=== PATIENT | female | born 1935 | race Caucasian/White ===

== ENCOUNTER 2021-08-15 19:46 | Inpatient (IN) | payer OTHER ==
[~2021-08-15] VITALS: Ht 162.6 cm; Wt 56.7 kg
[2021-08-15] MEDS ORDERED: BONIVA150 MG (20:04)
[2021-08-15] MEDS ORDERED: CORTISONE (20:04)
[2021-08-18] MEDS ORDERED: XARELTO10 MG PO (14:24)
[2021-08-18] MEDS ORDERED: INTEGRA F CAPS1 EACH PO (14:24)
[2021-08-18] MEDS ORDERED: MILK OF MA400 MG/5 M PO (14:24)
[2021-08-18] MEDS ORDERED: SENOKOT-S TABL1 EACH PO (14:25)
[2021-08-18] MEDS ORDERED: RAYOS5 MG PO (14:26)
[2021-08-18] MEDS ORDERED: OXYC1TAB9 PO (14:27)
== END 2021-08-18 17:43 | DRG 522 ==
LOC: ER 19:46 → SURG 23:32 → SEC-K 23:32 → SURG 08-16 01:45
PROVIDERS: ADMIT Orthopaedic Surgery; ATTEND Orthopaedic Surgery
PROC: 0SRS0JZ Replacement of Left Hip Joint, Femoral Surface with Synthetic Substitute, Open Approach (ICD-10-PCS; principal; 2021-08-16 07:00)
DX: S72.032A Displaced midcervical fracture of left femur, initial encounter for closed fracture (principal); S50.812A Abrasion of left forearm, initial encounter; E66.3 Overweight; Z68.25 Body mass index [BMI] 25.0-25.9, adult; W18.09XA Striking against other object with subsequent fall, initial encounter; Z20.822 Contact with and (suspected) exposure to COVID-19

== ENCOUNTER 2021-10-02 10:42 | Outpatient (CLI) | payer OTHER ==
[~2021-10-02 10:42] MED LIST: BONIVA150 MG; CORTISONE; INTEGRA F CAPS1 EACH PO; MILK OF MA400 MG/5 M PO; OXYC1TAB9 PO; RAYOS5 MG PO; SENOKOT-S TABL1 EACH PO; XARELTO10 MG PO
== END 2021-10-02 10:44 | disposition home or self-care (01) ==
LOC: RAD 10:42
PROVIDERS: ATTEND Orthopaedic Surgery
DX: S72.032A Displaced midcervical fracture of left femur, initial encounter for closed fracture (principal)